=== PATIENT | male | born 1955 | race African-American/Black ===

== ENCOUNTER 2017-05-20 15:00 | Inpatient (IN) | payer OTHER ==
[2017-05-20 16:58] VITALS: BMI 28.3
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
[2017-05-20] MEDS ORDERED: MAGNESIUM CITRATE 300 ML BOTTLE PO PRN (18:21)
[2017-05-20] MEDS ORDERED: IBUPROFEN 400 MG TABLET (FP) PO PRN (18:21)
[2017-05-20] MEDS ORDERED: hydrOXYzine PAMOATE 50 MG CAPSULE (FP) PO PRN (18:21)
[2017-05-20] MEDS ORDERED: chlordiazePOXIDE HCL 25 MG CAPSULE PO PRN (18:21)
[2017-05-20] MEDS ORDERED: MENTHOL/PHENOL 1 EACH UD MM PRN (18:21)
[2017-05-20] MEDS ORDERED: MAGNESIUM HYDROX 2400MG/30ML ORAL SUSPENSION 30 ML CUP PO PRN (18:21)
[2017-05-20] MEDS ORDERED: ACETAMINOPHEN 325 MG TABLET (FP) PO PRN (18:21)
[2017-05-20] MEDS ORDERED: LOPERAMIDE HCL 2 MG CAPSULE PO PRN (18:21)
[2017-05-20] MEDS ORDERED: P-EPHED 60MG/TRIPROLIDI 2.5MG TABLET PO PRN (18:21)
[2017-05-20] MEDS ORDERED: guaiFENesin/D-METHORPHAN HB 10 ML UNIT-DOSE CUPS PO PRN (18:21)
[2017-05-20] MEDS ORDERED: MAG HYDROX/AL HYDROX/SIMETH 30 ML UNIT-DOSE CUP PO PRN (18:21)
[2017-05-20] MEDS ORDERED: chlordiazePOXIDE HCL 25 MG CAPSULE PO ONE (18:45)
[2017-05-20] MEDS: amLODIPine BESYLATE 5 MG TABLET (FP) PO SCH (19:45)
[2017-05-20] MEDS: NICOTINE 21 MG/24 HOURS TOPICAL PATCH TD SCH (19:48)
[2017-05-20] MEDS: chlordiazePOXIDE HCL 25 MG CAPSULE PO SCH (22:19)
[2017-05-20] MEDS: THIAMINE HCL 100 MG TABLET (FP) PO SCH (22:19)
[2017-05-20 23:24] LABS: URINE APPEARANCE CLEAR; URINE BILIRUBIN NEGATIVE (NEGATIVE); URINE BLOOD 1+ (NEGATIVE); URINE COLOR YELLOW; URINE GLUCOSE (UA) NEGATIVE (NEGATIVE); URINE KETONE NEGATIVE (NEGATIVE); URINE LEUK ESTERASE NEGATIVE (NEGATIVE); URINE NITRITE NEGATIVE (NEGATIVE); URINE PROTEIN NEGATIVE (NEGATIVE); URINE UROBILINOGEN NEGATIVE mg/dL (0.2-1.0)
[2017-05-21 01:05] LABS: URINE RBC 1 /hpf (0-3)
[2017-05-21 01:06] LABS: URINE BACTERIA RARE /hpf (NONE SEEN); URINE WBC 1 /hpf (3-5)
[2017-05-21] MEDS: chlordiazePOXIDE HCL 25 MG CAPSULE PO SCH ×4 (05:07→22:13)
[2017-05-21 10:13] LABS: MCH 25.6 pg (25.7-33.7); MCHC 33.6 g/dl (32.0-35.9); MEAN CELL VOLUME 76.3 fl (80-96); MEAN PLT VOLUME 7.6 fl (7.5-11.1); PLATELET COUNT 260 K/MM3 (134-434); RDW 17.2 % (11.9-15.9); WHITE BLOOD COUNT 11.3 K/mm3 (4.0-10.0)
[2017-05-21] MEDS: NICOTINE 21 MG/24 HOURS TOPICAL PATCH TD SCH (10:23)
[2017-05-21] MEDS: PRENATAL VITAMINS W/ FOLIC ACID TABLET (FP) PO SCH (10:23)
[2017-05-21] MEDS: amLODIPine BESYLATE 5 MG TABLET (FP) PO SCH (10:23)
[2017-05-21 10:53] LABS: ALBUMIN 3.1 g/dl (3.4-5.0); ALK PHOS 90 U/L (45-117); ANION GAP 8 (8-16); BILIRUBIN,TOTAL 0.4 mg/dL (0.2-1.0); CALCIUM 8.5 mg/dL (8.5-10.1); CO2 29 mmol/L (21-32); CREATININE 0.8 mg/dL (0.7-1.3); GLUCOSE,RANDOM 85 mg/dL (74-106); SGOT/AST 57 U/L (15-37); SGPT/ALT 52 U/L (12-78); TOT PROT 7.2 g/dl (6.4-8.2)
--- NOTE | 2017-05-21 12:23 | EKG ---
Test Reason : Blood Pressure : / mmHG Vent. Rate : 058 BPM Atrial Rate : 058 BPM P-R Int : 144 ms QRS Dur : 100 ms QT Int : 440 ms P-R-T Axes : 051 -65 068 degrees QTc Int : 431 ms SINUS BRADYCARDIA POSSIBLE LEFT ATRIAL ENLARGEMENT INCOMPLETE RIGHT BUNDLE BRANCH BLOCK LEFT ANTERIOR FASCICULAR BLOCK ABNORMAL ECG NO PREVIOUS ECGS AVAILABLE Confirmed by ALAN VERDUGO, MIKE ([id number]) on 05/21/2017 12:22:36 PM Referred By: Edward Flanagan Confirmed By:MIKE PHILLIPS MD
--- NOTE | 2017-05-21 12:43 | PN ---
[facility] CIWA - CIWA Score Nausea/Vomitin-No Nausea/No Vomiting Muscle Tremors: 4-Moderate,w/Arms Extend Anxiety: 4-Mod. Anxious/Guarded Agitation: 4-Moderately Restless Paroxysmal Sweats: 1-Minimal Palms Moist Orientation: 0-Oriented Tacttile Disturbances: 3-Moderate Itch/Numb/Burn Auditory Disturbances: 0-None Visual Disturbances: 0-None Headache: 0-None Present CIWA-Ar Total Score: 16 S Progress Note (SOAP) Subjective: ANXIETY,TREMORS,SWEATS,FATIGUE, [place]ARR[place]A. Objective: 05/21/17 12:42 Vital Signs Temperature 97.3 F L 05/21/17 09:27 Pulse Rate 64 05/21/17 09:27 Respiratory Rate 16 05/21/17 09:27 Blood Pressure 118/80 05/21/17 09:27 O2 Sat by Pulse Oximetry (%) Laboratory Last Values WBC 11.3 K/mm3 (4.0-10.0) H D 05/21/17 06:30 RBC 4.38 M/mm3 (4.00-5.60) 05/21/17 06:30 Hgb 11.2 GM/dL (11.7-16.9) L 05/21/17 06:30 Hct 33.4 % (35.4-49) L 05/21/17 06:30 MCV 76.3 fl (80-96) L 05/21/17 06:30 MCH 25.6 pg (25.7-33.7) L 05/21/17 06:30 MCHC 33.6 g/dl (32.0-35.9) 05/21/17 06:30 RDW 17.2 % (11.9-15.9) H 05/21/17 06:30 Plt Count 260 K/MM3 (134-434) 05/21/17 06:30 MPV 7.6 fl (7.5-11.1) 05/21/17 06:30 Sodium 141 mmol/L (136-145) 05/21/17 06:30 Potassium 4.0 mmol/L (3.5-5.1) 05/21/17 06:30 Chloride 104 mmol/L (98-107) 05/21/17 06:30 Carbon Dioxide 29 mmol/L (21-32) 05/21/17 06:30 Anion Gap 8 (8-16) 05/21/17 06:30 BUN 7 mg/dL (7-18) D 05/21/17 06:30 Creatinine 0.8 mg/dL (0.7-1.3) 05/21/17 06:30 Creat Clearance w eGFR > 60 (>60) 05/21/17 06:30 Random Glucose 85 mg/dL (74-106) 05/21/17 06:30 Calcium 8.5 mg/dL (8.5-10.1) 05/21/17 06:30 Total Bilirubin 0.4 mg/dL (0.2-1.0) D 05/21/17 06:30 AST 57 U/L (15-37) H D 05/21/17 06:30 ALT 52 U/L (12-78) 05/21/17 06:30 Alkaline Phosphatase 90 U/L (45-117) 05/21/17 06:30 Total Protein 7.2 g/dl (6.4-8.2) 05/21/17 06:30 Albumin 3.1 g/dl (3.4-5.0) L 05/21/17 06:30 Urine Color Yellow 05/20/17 20:00 Urine Appearance Clear 05/20/17 20:00 Urine pH 5.0 (5.0-8.0) 05/20/17 20:00 Ur Specific [place] 1.020 (1.005-1.025) 05/20/17 20:00 Urine Protein Negative (NEGATIVE) 05/20/17 20:00 Urine Glucose (UA) Negative (NEGATIVE) 05/20/17 20:00 Urine Ketones Negative (NEGATIVE) 05/20/17 20:00 Urine Blood 1+ (NEGATIVE) H 05/20/17 20:00 Urine Nitrite Negative (NEGATIVE) 05/20/17 20:00 Urine Bilirubin Negative (NEGATIVE) 05/20/17 20:00 Urine Urobilinogen Negative mg/dL (0.2-1.0) 05/20/17 20:00 Ur Leukocyte Esterase Negative (NEGATIVE) 05/20/17 20:00 Urine RBC 1 /hpf (0-3) 05/20/17 20:00 Urine WBC 1 /hpf (3-5) 05/20/17 20:00 Ur Epithelial Cells Rare /hpf (FEW) 05/20/17 20:00 Urine Bacteria Rare /hpf (NONE SEEN) 05/20/17 20:00 RPR Titer Nonreactive (NONREACTIVE) 05/21/17 06:30 Assessment: 05/21/17 12:43 WITHDRAWAL SX Plan: CONTINUE DETOX
[2017-05-21] MEDS: FERROUS SO4 325 MG TABLET (FP) PO SCH (13:47)
[2017-05-21] MEDS: THIAMINE HCL 100 MG TABLET (FP) PO SCH (22:13)
[2017-05-21] MEDS: diphenhydrAMINE HCL 50 MG CAPSULE PO PRN (22:13)
[2017-05-22] MEDS: chlordiazePOXIDE HCL 25 MG CAPSULE PO SCH ×3 (05:08→16:56)
[2017-05-22 10:14] LABS: BASOPHIL 0.9 % (0-2.0); EOSINOPHIL 3.1 % (0-4.5); MCH 25.8 pg (25.7-33.7); MCHC 33.5 g/dl (32.0-35.9); MEAN PLT VOLUME 7.9 fl (7.5-11.1); PLATELET COUNT 253 K/MM3 (134-434); RDW 17.8 % (11.9-15.9); WHITE BLOOD COUNT 9.1 K/mm3 (4.0-10.0)
[2017-05-22] MEDS: FERROUS SO4 325 MG TABLET (FP) PO SCH (10:15)
[2017-05-22] MEDS: PRENATAL VITAMINS W/ FOLIC ACID TABLET (FP) PO SCH (10:15)
[2017-05-22] MEDS: amLODIPine BESYLATE 5 MG TABLET (FP) PO SCH (10:15)
[2017-05-22] MEDS: NICOTINE 21 MG/24 HOURS TOPICAL PATCH TD SCH (10:16)
--- NOTE | 2017-05-22 10:55 | PN ---
[facility] CIWA - CIWA Score Nausea/Vomitin-No Nausea/No Vomiting Muscle Tremors: 4-Moderate,w/Arms Extend Anxiety: 4-Mod. Anxious/Guarded Agitation: 4-Moderately Restless Paroxysmal Sweats: 1-Minimal Palms Moist Orientation: 0-Oriented Tacttile Disturbances: 3-Moderate Itch/Numb/Burn Auditory Disturbances: 0-None Visual Disturbances: 0-None Headache: 0-None Present CIWA-Ar Total Score: 16 S Progress Note (SOAP) Subjective: SLIGHT ANXIETY,TREMORS,FATIGUE. LESS AGITATION THIS MORNING. Objective: 05/22/17 10:54 Vital Signs Temperature 98.7 F 05/22/17 09:49 Pulse Rate 60 05/22/17 09:49 Respiratory Rate 20 05/22/17 09:49 Blood Pressure 122/75 05/22/17 09:49 O2 Sat by Pulse Oximetry (%) Laboratory Last Values WBC 9.1 K/mm3 (4.0-10.0) 05/22/17 06:30 RBC 4.18 M/mm3 (4.00-5.60) 05/22/17 06:30 Hgb 10.8 GM/dL (11.7-16.9) L 05/22/17 06:30 Hct 32.2 % (35.4-49) L 05/22/17 06:30 MCV 77.0 fl (80-96) L 05/22/17 06:30 MCH 25.8 pg (25.7-33.7) 05/22/17 06:30 MCHC 33.5 g/dl (32.0-35.9) 05/22/17 06:30 RDW 17.8 % (11.9-15.9) H 05/22/17 06:30 Plt Count 253 K/MM3 (134-434) 05/22/17 06:30 MPV 7.9 fl (7.5-11.1) 05/22/17 06:30 Neutrophils % 51.0 % (42.8-82.8) 05/22/17 06:30 Lymphocytes % 26.8 % (8-40) 05/22/17 06:30 Monocytes % 18.2 % (3.8-10.2) H 05/22/17 06:30 Eosinophils % 3.1 % (0-4.5) 05/22/17 06:30 Basophils % 0.9 % (0-2.0) 05/22/17 06:30 Sodium 141 mmol/L (136-145) 05/21/17 06:30 Potassium 4.0 mmol/L (3.5-5.1) 05/21/17 06:30 Chloride 104 mmol/L (98-107) 05/21/17 06:30 Carbon Dioxide 29 mmol/L (21-32) 05/21/17 06:30 Anion Gap 8 (8-16) 05/21/17 06:30 BUN 7 mg/dL (7-18) D 05/21/17 06:30 Creatinine 0.8 mg/dL (0.7-1.3) 05/21/17 06:30 Creat Clearance w eGFR > 60 (>60) 05/21/17 06:30 Random Glucose 85 mg/dL (74-106) 05/21/17 06:30 Calcium 8.5 mg/dL (8.5-10.1) 05/21/17 06:30 Total Bilirubin 0.4 mg/dL (0.2-1.0) D 05/21/17 06:30 AST 57 U/L (15-37) H D 05/21/17 06:30 ALT 52 U/L (12-78) 05/21/17 06:30 Alkaline Phosphatase 90 U/L (45-117) 05/21/17 06:30 Total Protein 7.2 g/dl (6.4-8.2) 05/21/17 06:30 Albumin 3.1 g/dl (3.4-5.0) L 05/21/17 06:30 Urine Color Yellow 05/20/17 20:00 Urine Appearance Clear 05/20/17 20:00 Urine pH 5.0 (5.0-8.0) 05/20/17 20:00 Ur Specific [place] 1.020 (1.005-1.025) 05/20/17 20:00 Urine Protein Negative (NEGATIVE) 05/20/17 20:00 Urine Glucose (UA) Negative (NEGATIVE) 05/20/17 20:00 Urine Ketones Negative (NEGATIVE) 05/20/17 20:00 Urine Blood 1+ (NEGATIVE) H 05/20/17 20:00 Urine Nitrite Negative (NEGATIVE) 05/20/17 20:00 Urine Bilirubin Negative (NEGATIVE) 05/20/17 20:00 Urine Urobilinogen Negative mg/dL (0.2-1.0) 05/20/17 20:00 Ur Leukocyte Esterase Negative (NEGATIVE) 05/20/17 20:00 Urine RBC 1 /hpf (0-3) 05/20/17 20:00 Urine WBC 1 /hpf (3-5) 05/20/17 20:00 Ur Epithelial Cells Rare /hpf (FEW) 05/20/17 20:00 Urine Bacteria Rare /hpf (NONE SEEN) 05/20/17 20:00 RPR Titer Nonreactive (NONREACTIVE) 05/21/17 06:30 Assessment: 05/22/17 10:55 WITHDRAWAL SX Plan: CONTINUE DETOX
[2017-05-22] MEDS: NICOTINE POLACRILEX 2 MG GUM BUC PRN (20:49)
[2017-05-22] MEDS: chlordiazePOXIDE 5 MG CAPSULE PO SCH (22:12)
[2017-05-22] MEDS: THIAMINE HCL 100 MG TABLET (FP) PO SCH (22:12)
[2017-05-22] MEDS: diphenhydrAMINE HCL 50 MG CAPSULE PO PRN (22:12)
[2017-05-23] MEDS: chlordiazePOXIDE 5 MG CAPSULE PO SCH ×3 (05:31→17:21)
[2017-05-23] MEDS: NICOTINE 21 MG/24 HOURS TOPICAL PATCH TD SCH (10:05)
[2017-05-23] MEDS: PRENATAL VITAMINS W/ FOLIC ACID TABLET (FP) PO SCH (10:05)
[2017-05-23] MEDS: FERROUS SO4 325 MG TABLET (FP) PO SCH (10:05)
[2017-05-23] MEDS: amLODIPine BESYLATE 5 MG TABLET (FP) PO SCH (10:05)
--- NOTE | 2017-05-23 10:54 | PN ---
BHS Progress Note (SOAP) Subjective: ALERT O X 3. NAD. ANXIETY SWEATS. Objective: 05/23/17 10:53 Vital Signs Temperature 96.9 F L 05/23/17 09:13 Pulse Rate 69 05/23/17 09:13 Respiratory Rate 18 05/23/17 09:13 Blood Pressure 112/82 05/23/17 09:13 O2 Sat by Pulse Oximetry (%) Laboratory Last Values WBC 9.1 K/mm3 (4.0-10.0) 05/22/17 06:30 RBC 4.18 M/mm3 (4.00-5.60) 05/22/17 06:30 Hgb 10.8 GM/dL (11.7-16.9) L 05/22/17 06:30 Hct 32.2 % (35.4-49) L 05/22/17 06:30 MCV 77.0 fl (80-96) L 05/22/17 06:30 MCH 25.8 pg (25.7-33.7) 05/22/17 06:30 MCHC 33.5 g/dl (32.0-35.9) 05/22/17 06:30 RDW 17.8 % (11.9-15.9) H 05/22/17 06:30 Plt Count 253 K/MM3 (134-434) 05/22/17 06:30 MPV 7.9 fl (7.5-11.1) 05/22/17 06:30 Neutrophils % 51.0 % (42.8-82.8) 05/22/17 06:30 Lymphocytes % 26.8 % (8-40) 05/22/17 06:30 Monocytes % 18.2 % (3.8-10.2) H 05/22/17 06:30 Eosinophils % 3.1 % (0-4.5) 05/22/17 06:30 Basophils % 0.9 % (0-2.0) 05/22/17 06:30 Sodium 141 mmol/L (136-145) 05/21/17 06:30 Potassium 4.0 mmol/L (3.5-5.1) 05/21/17 06:30 Chloride 104 mmol/L (98-107) 05/21/17 06:30 Carbon Dioxide 29 mmol/L (21-32) 05/21/17 06:30 Anion Gap 8 (8-16) 05/21/17 06:30 BUN 7 mg/dL (7-18) D 05/21/17 06:30 Creatinine 0.8 mg/dL (0.7-1.3) 05/21/17 06:30 Creat Clearance w eGFR > 60 (>60) 05/21/17 06:30 Random Glucose 85 mg/dL (74-106) 05/21/17 06:30 Calcium 8.5 mg/dL (8.5-10.1) 05/21/17 06:30 Total Bilirubin 0.4 mg/dL (0.2-1.0) D 05/21/17 06:30 AST 57 U/L (15-37) H D 05/21/17 06:30 ALT 52 U/L (12-78) 05/21/17 06:30 Alkaline Phosphatase 90 U/L (45-117) 05/21/17 06:30 Total Protein 7.2 g/dl (6.4-8.2) 05/21/17 06:30 Albumin 3.1 g/dl (3.4-5.0) L 05/21/17 06:30 Urine Color Yellow 05/20/17 20:00 Urine Appearance Clear 05/20/17 20:00 Urine pH 5.0 (5.0-8.0) 05/20/17 20:00 Ur Specific [place] 1.020 (1.005-1.025) 05/20/17 20:00 Urine Protein Negative (NEGATIVE) 05/20/17 20:00 Urine Glucose (UA) Negative (NEGATIVE) 05/20/17 20:00 Urine Ketones Negative (NEGATIVE) 05/20/17 20:00 Urine Blood 1+ (NEGATIVE) H 05/20/17 20:00 Urine Nitrite Negative (NEGATIVE) 05/20/17 20:00 Urine Bilirubin Negative (NEGATIVE) 05/20/17 20:00 Urine Urobilinogen Negative mg/dL (0.2-1.0) 05/20/17 20:00 Ur Leukocyte Esterase Negative (NEGATIVE) 05/20/17 20:00 Urine RBC 1 /hpf (0-3) 05/20/17 20:00 Urine WBC 1 /hpf (3-5) 05/20/17 20:00 Ur Epithelial Cells Rare /hpf (FEW) 05/20/17 20:00 Urine Bacteria Rare /hpf (NONE SEEN) 05/20/17 20:00 RPR Titer Nonreactive (NONREACTIVE) 05/21/17 06:30 Assessment: 05/23/17 10:53 WITHDRAWAL SX Plan: CONTINUE DETOX
[2017-05-23] MEDS: NICOTINE POLACRILEX 2 MG GUM BUC PRN (19:50)
[2017-05-23] MEDS: diphenhydrAMINE HCL 50 MG CAPSULE PO PRN (22:07)
[2017-05-23] MEDS: chlordiazePOXIDE HCL 10 MG CAPSULE PO SCH (22:07)
[2017-05-23] MEDS: THIAMINE HCL 100 MG TABLET (FP) PO SCH (22:07)
[2017-05-24] MEDS: chlordiazePOXIDE HCL 10 MG CAPSULE PO SCH (06:20)
[2017-05-24] MEDS: PRENATAL VITAMINS W/ FOLIC ACID TABLET (FP) PO SCH (09:06)
[2017-05-24] MEDS: FERROUS SO4 325 MG TABLET (FP) PO SCH (09:06)
[2017-05-24] MEDS: amLODIPine BESYLATE 5 MG TABLET (FP) PO SCH (09:06)
[2017-05-24] MEDS: NICOTINE 21 MG/24 HOURS TOPICAL PATCH TD SCH (09:08)
[2017-05-24 09:56] VITALS: BP 139/91; PULSE 82; TEMP 96.4
--- NOTE | 2017-05-24 13:28 | DS ---
[facility] Detox Discharge Summary Admission Date: 05/20/17 Discharge Date: 05/24/17 - History Present History: Alcohol Dependence, Cocaine Dependence Additional Comments: PATIENT TO GO TO [facility] SUBSTANCE USE TREATMENT PROGRAM. PATIENT ADVISED TO FOLLOW-UP THERE FOR AFTERCARE PER DISCHARGE ARRANGEMENT. PATIENT NOTES THAT HE DOES CURRENTLY HAVE A PRIMARY CARE MEDICAL PROVIDER; PATIENT ADVISED TO FOLLOW-UP WITH THAT PROVIDER AFTER DISCHARGE FROM DETOX FOR ABNORMAL ADMISSION CBC VALUES. Pertinent Past History: HTN, Alopecia Areata Universalis, History of [place] to Back. - Physical Exam Results Vital Signs: Vital Signs Temperature 96.4 F L 05/24/17 09:56 Pulse Rate 82 05/24/17 09:56 Respiratory Rate 18 05/24/17 09:56 Blood Pressure 139/91 05/24/17 09:56 O2 Sat by Pulse Oximetry (%) Pertinent Admission Physical Exam Findings: WITHDRAWAL SYMPTOMS. Laboratory Tests 05/20/17 05/21/17 05/21/17 20:00 06:30 06:30 WBC 11.3 H D RBC 4.38 Hgb 11.2 L Hct 33.4 L MCV 76.3 L MCH 25.6 L MCHC 33.6 RDW 17.2 H Plt Count 260 MPV 7.6 Neutrophils % Lymphocytes % Monocytes % Eosinophils % Basophils % Sodium 141 Potassium 4.0 Chloride 104 Carbon Dioxide 29 Anion Gap 8 BUN 7 D Creatinine 0.8 Creat Clearance w eGFR > 60 Random Glucose 85 Calcium 8.5 Total Bilirubin 0.4 D AST 57 H D ALT 52 Alkaline Phosphatase 90 Total Protein 7.2 Albumin 3.1 L Urine Color Yellow Urine Appearance Clear Urine pH 5.0 Ur Specific [place] 1.020 Urine Protein Negative Urine Glucose (UA) Negative Urine Ketones Negative Urine Blood 1+ H Urine Nitrite Negative Urine Bilirubin Negative Urine Urobilinogen Negative Ur Leukocyte Esterase Negative Urine RBC 1 Urine WBC 1 Ur Epithelial Cells Rare Urine Bacteria Rare RPR Titer 05/21/17 05/22/17 06:30 06:30 WBC 9.1 RBC 4.18 Hgb 10.8 L Hct 32.2 L MCV 77.0 L MCH 25.8 MCHC 33.5 RDW 17.8 H Plt Count 253 MPV 7.9 Neutrophils % 51.0 Lymphocytes % 26.8 Monocytes % 18.2 H Eosinophils % 3.1 Basophils % 0.9 Sodium Potassium Chloride Carbon Dioxide Anion Gap BUN Creatinine Creat Clearance w eGFR Random Glucose Calcium Total Bilirubin AST ALT Alkaline Phosphatase Total Protein Albumin Urine Color Urine Appearance Urine pH Ur Specific [place] Urine Protein Urine Glucose (UA) Urine Ketones Urine Blood Urine Nitrite Urine Bilirubin Urine Urobilinogen Ur Leukocyte Esterase Urine RBC Urine WBC Ur Epithelial Cells Urine Bacteria RPR Titer Nonreactive LABS NOTED. - Treatment Hospital Course: Detox Protocol Followed, Detoxed Safely, Responded well, Discharged Condition Good - Medication Discharge Medications: Ambulatory Orders Ferrous Sulfate [Feosol] 325 mg PO DAILY #30 tablet 05/24/17 - Diagnosis (1) Alcohol dependence with uncomplicated withdrawal Status: Acute (2) Cocaine dependence Status: Acute Qualifiers: Substance use status: uncomplicated Qualified Code(s): F14.20 - Cocaine dependence, uncomplicated (3) Nicotine dependence Status: Chronic Qualifiers: Nicotine product type: cigarettes Substance use status: in withdrawal Qualified Code(s): F17.213 - Nicotine dependence, cigarettes, with withdrawal (4) Alopecia areata universalis Status: Chronic (5) Essential (primary) hypertension Status: Chronic - AMA Did Patient Leave Against Medical Advice: No
== END 2017-05-24 09:05 | disposition home or self-care (01) | DRG 774 ==
LOC: YASAS 15:00 → Y3N 18:36
PROVIDERS: ADMIT Internal Medicine; ATTEND Internal Medicine
PROC: HZ2ZZZZ Detoxification Services for Substance Abuse Treatment (ICD-10-PCS; principal; 2017-05-24)
DX: F10.230 Alcohol dependence with withdrawal, uncomplicated (principal); F14.20 Cocaine dependence, uncomplicated; F12.20 Cannabis dependence, uncomplicated; F17.210 Nicotine dependence, cigarettes, uncomplicated; I10 Essential (primary) hypertension; L63.1 Alopecia universalis; T21.3 Burn of third degree of trunk; Z87.438 Personal history of other diseases of male genital organs
CPT/HCPCS: 36415; 80053; 81003; 81015; 85025; 85027; 86593; 93005; 93010

== ENCOUNTER 2019-01-01 14:00 | Inpatient (IN) | payer OTHER ==
[2019-01-01 22:46] VITALS: BMI 29.1
--- NOTE | 2019-01-02 03:24 | HP ---
CIWA Score Nausea/Vomitin-Mild Nausea/No Vomiting (hx/o htn with worsening elevated b/ p when withdrawing.presentss with josé of .076. client unable to stop drinking due to withdrawal sx's. cont to drink not to withdraw) Muscle Tremors: None Anxiety: 4-Mod. Anxious/Guarded Agitation: 4-Moderately Restless Paroxysmal Sweats: No Perspiration Orientation: 0-Oriented Tacttile Disturbances: 0-None Auditory Disturbances: 0-None Visual Disturbances: 0-None Headache: 0-None Present CIWA-Ar Total Score: 9 - Admission Criteria OASAS Guidelines: Admission for Medically Managed Detox: Requires at least one of the followin. CIWA greater than 12 2. Seizures within the past 24 hours 3. Delirium tremens within the past 24 hours 4. Hallucinations within the past 24 hours 5. Acute intervention needed for co occurring medical disorder 6. Acute intervention needed for co occurring psychiatric disorder 7. Severe withdrawal that cannot be handled at a lower level of care (continued vomiting, continued diarrhea, abnormal vital signs) requiring intravenous medication and/or fluids 8. Patient presents the following: Acute intervention needed for co-occurring med or psych disorder (josé .076 client continues to drink due to withdrawal sx's.) Admission Criteria Met: Admission criteria met Admission ROS [facility] Chief Complaint: c/o worsening withdrawal sx's. seeking detox txment. Allergies/Adverse Reactions: Allergies Allergy/AdvReac Type Severity Reaction Status Date / Time No Known Allergies Allergy Verified 01/01/19 23:37 History of Present Illness: 63 y.o. male with hx/o alcoholism here seeking admission to detox. client is self referred as he is known to this program. He reports a recent detox at [facility] 10 days ago. he states he immediately relapsed after ks. drinking 6 pack of beer, 20 oz bottles daily. reports last drink earlier today due to worsening withdrawal sx's. He also states he experience very high blood pressure when withdrawing. ciwa 09. utox + bzo and hx/o htn. Denies any given period of sobriety denies hx/o seizures, si/hi, avh. lives with sibling, ssi- denies legals pmhx= htn psych- denies Exam Limitations: No Limitations - Ebola screening Have you traveled outside of the country in the last 21 days: No Have you had contact with anyone from an Ebola affected area: No Have you been sick,other than usual withdrawal symptoms: No Do you have a fever: No - Review of Systems Constitutional: Loss of Appetite EENT: reports: No Symptoms Reported Respiratory: reports: No Symptoms reported Cardiac: reports: No Symptoms Reported GI: reports: Nausea, Poor Fluid Intake : reports: No Symptoms Reported Musculoskeletal: reports: No Symptoms Reported Integumentary: reports: No Symptoms Reported Neuro: reports: No Symptoms reported Endocrine: reports: No Symptoms Reported Hematology: reports: No Symptoms Reported Psychiatric: reports: No Sypmtoms Reported Other Systems: Reviewed and Negative Patient History - Patient Medical History Hx Anemia: No Hx Asthma: No Hx Chronic Obstructive Pulmonary Disease (COPD): No Hx Cancer: No Hx Cardiac Disorders: No Hx Congestive Heart Failure: No Hx Hypertension: Yes (norvasc 5 mg) Hx Hypercholesterolemia: No Hx Pacemaker: No HX Cerebrovascular Accident: No Hx Seizures: No Hx Dementia: No Hx Diabetes: No Hx Gastrointestinal Disorders: No Hx Liver Disease: No Hx Genitourinary Disorders: No Hx Sexually Transmitted Disorders: Yes (GC in 1999) Hx Renal Disease (ESRD): No Hx Thyroid Disease: No Hx Human Immunodeficiency Virus (HIV): No Hx Hepatitis C: No Hx Depression: No Hx Suicide Attempt: No Hx Bipolar Disorder: No Hx Schizophrenia: No - Patient Surgical History Past Surgical History: No Hx Neurologic Surgery: No Hx Cataract Extraction: No Hx Cardiac Surgery: No Hx Lung Surgery: No Hx Breast Surgery: No Hx Breast Biopsy: No Hx Abdominal Surgery: No Hx Appendectomy: No Hx Cholecystectomy: No Hx Genitourinary Surgery: No Hx Section: No Hx Orthopedic Surgery: No Anesthesia Reaction: No - PPD History Previous Implant?: Yes Documented Results: Negative w/proof Implanted On Prior R Admission?: Yes Date: 05/22/17 Results: 0 mm PPD to be Administered?: Yes - Smoking Cessation Smoking history: Current every day smoker Have you smoked in the past 12 months: Yes Aproximately how many cigarettes per day: 20 Cigars Per Day: 0 Hx Chewing Tobacco Use: No Initiated information on smoking cessation: Yes 'Breaking Loose' booklet given: 01/02/19 - Substance & Tx. History Hx Alcohol Use: Yes Hx Substance Use: Yes Substance Use Type: Alcohol Hx Substance Use Treatment: Yes ([facility]) - Substances Abused Alcohol Route: Oral Frequency: Daily Amount used: beer- 2 six pack-20 oz Age of first use: 18 Date of Last Use: 01/01/19 Family Disease History - Family Disease History Family Disease History: Diabetes: Brother (drug issues ), Heart Disease: Mother (aneurysm,HTN ), Respiratory: Father (emphysema/ALCOHOLIC ), Other: Mother, Brother Admission Physical Exam [facility] - Vital Signs Vital Signs: Vital Signs - 24 hr 01/01/19 22:45 Temperature 96.8 F L Pulse Rate 62 Respiratory 18 Rate Blood Pressure 130/83 - Physical General Appearance: Yes: Appropriately Dressed, Mild Distress, Tremorous (felt) , Irritable, Anxious HEENTM: Yes: EOMI, Normocephalic, Normal Voice, JULIO, Pharynx Normal Respiratory: Yes: Chest Non-Tender, Lungs Clear, Normal Breath Sounds, No Respiratory Distress, No Accessory Muscle Use Neck: Yes: No masses,lesions,Nodules, Supple, Trachea in good position Breast: Yes: Breast Exam Deferred Cardiology: Yes: Regular Rhythm, Regular Rate, S1, S2 Abdominal: Yes: Normal Bowel Sounds, Non Tender, Soft, Protuberent Genitourinary: Yes: Other (no c/o offered) Back: Yes: Normal Inspection Musculoskeletal: Yes: full range of Motion, Gait Steady Extremities: Yes: Normal Capillary Refill, Normal Range of Motion, Non-Tender, Tremors (felt) Neurological: Yes: Fully Oriented, Alert, Motor Strength 5/5 Integumentary: Yes: Dry, Warm Lymphatic: Yes: Within Normal Limits - Diagnostic (1) Alcohol dependence with uncomplicated withdrawal Current Visit: Yes Status: Acute (2) Essential (primary) hypertension Current Visit: Yes Status: Chronic (3) Nicotine dependence Current Visit: Yes Status: Chronic Qualifiers: Nicotine product type: cigarettes Substance use status: in withdrawal Qualified Code(s): F17.213 - Nicotine dependence, cigarettes, with withdrawal Cleared for Admission [facility] - Detox or Rehab [facility] Level of Care: Medically Managed Detox Regimen/Protocol: Librium Claeared for Rehab Admission: No S Breath Alcohol Content Breath Alcohol Content: 0.076 Urine Drug Screen - Results Drug Screen Negative: No Urine Drug Screen Results: BZO-Benzodiazepines Inpatient Rehab Admission - Rehab Decision to Admit Inpatient rehab admission?: No
[2019-01-02] MEDS ORDERED: METHOCARBAMOL 500 MG TABLET PO PRN (03:27)
[2019-01-02] MEDS ORDERED: ACETAMINOPHEN 325 MG TABLET (FP) PO PRN (03:27)
[2019-01-02] MEDS ORDERED: chlordiazePOXIDE HCL 10 MG CAPSULE PO PRN (03:27)
[2019-01-02] MEDS ORDERED: hydrOXYzine PAMOATE 25 MG CAPSULE (FP) PO PRN (03:27)
[2019-01-02] MEDS ORDERED: NICOTINE POLACRILEX 2 MG GUM BUC PRN (03:27)
[2019-01-02] MEDS ORDERED: MAG HYDROX/AL HYDROX/SIMETH 30 ML UNIT-DOSE CUP PO PRN (03:27)
[2019-01-02] MEDS ORDERED: MELATONIN 5 MG TABLETS PO PRN (03:27)
[2019-01-02] MEDS ORDERED: MAGNESIUM CITRATE 300 ML BOTTLE PO PRN (03:27)
[2019-01-02] MEDS ORDERED: BISMUTH SUBSALICYLATE 524 MG/30 ML UD PO PRN (03:27)
[2019-01-02] MEDS ORDERED: MAGNESIUM HYDROX 2400MG/30ML ORAL SUSPENSION 30 ML CUP PO PRN (03:27)
[2019-01-02] MEDS: chlordiazePOXIDE HCL 25 MG CAPSULE PO SCH ×3 (04:06→23:06)
[2019-01-02 10:20] LABS: HEMATOCRIT 36.3 % (35.4-49); HEMOGLOBIN 12.5 GM/dL (11.7-16.9); MCH 24.7 pg (25.7-33.7); MCHC 34.4 g/dl (32.0-35.9); MEAN CELL VOLUME 71.8 fl (80-96); PLATELET COUNT 353 K/MM3 (134-434); RBC 5.06 M/mm3 (4.00-5.60); RDW 18.3 % (11.9-15.9); WHITE BLOOD COUNT 11.7 K/mm3 (4.0-10.0)
[2019-01-02 10:29] LABS: ALBUMIN 3.4 g/dl (3.4-5.0); ALK PHOS 72 U/L (45-117); ANION GAP 7 MMOL/L (8-16); BILIRUBIN,TOTAL 0.3 mg/dL (0.2-1); BLOOD UREA NITROGEN 24 mg/dL (7-18); CALCIUM 8.9 mg/dL (8.5-10.1); CHLORIDE 103 mmol/L (98-107); CO2 27 mmol/L (21-32); CREATININE 1.1 mg/dL (0.55-1.3); GLUCOSE,RANDOM 64 mg/dL (74-106); POTASSIUM 5.5 mmol/L (3.5-5.1); SGOT/AST 17 U/L (15-37); SGPT/ALT 20 U/L (13-61); SODIUM 137 mmol/L (136-145); TOT PROT 8.2 g/dl (6.4-8.2)
[2019-01-02] MEDS: PRENATAL VITAMINS W/ FOLIC ACID TABLET (FP) PO SCH (10:47)
[2019-01-02] MEDS: NICOTINE 14 MG/24 HOURS TOPICAL PATCH TD SCH (10:48)
[2019-01-02] MEDS: MENTHOL/PHENOL 1 EACH UD MM PRN (13:41)
[2019-01-02] MEDS: IBUPROFEN 400 MG TABLET (FP) PO PRN (13:41)
--- NOTE | 2019-01-02 14:42 | PN ---
S CIWA - CIWA Score Nausea/Vomitin Muscle Tremors: None Anxiety: 2 Agitation: 0-Normal Activity Paroxysmal Sweats: 3 Orientation: 0-Oriented Tacttile Disturbances: 3-Moderate Itch/Numb/Burn Auditory Disturbances: 0-None Visual Disturbances: 2-Mild Sensitivity Headache: 0-None Present CIWA-Ar Total Score: 12 S Progress Note (SOAP) Subjective: Anxious, Sweating, Nausea, Fatigue. Objective: PATIENT A & O X 3. IN NO ACUTE DISTRESS. PATIENT AFEBRILE. 01/02/19 14:42 Vital Signs Temperature 97.8 F 01/02/19 13:45 Pulse Rate 56 L 01/02/19 13:45 Respiratory Rate 18 01/02/19 13:45 Blood Pressure 98/61 01/02/19 13:45 O2 Sat by Pulse Oximetry (%) Laboratory Tests 01/02/19 01/02/19 07:40 07:40 WBC 11.7 H RBC 5.06 Hgb 12.5 Hct 36.3 MCV 71.8 L MCH 24.7 L MCHC 34.4 RDW 18.3 H Plt Count 353 D MPV 8.0 Sodium 137 Potassium 5.5 H Chloride 103 Carbon Dioxide 27 Anion Gap 7 L BUN 24 H Creatinine 1.1 Creat Clearance w eGFR > 60 Random Glucose 64 L Calcium 8.9 Total Bilirubin 0.3 AST 17 ALT 20 Alkaline Phosphatase 72 Total Protein 8.2 Albumin 3.4 LABS NOTED. RPR RESULT PENDING. 01/02/19 14:47 Assessment: 01/02/19 14:47 WITHDRAWAL SYMPTOMS. HYPERKALEMIA. LEUKOPCYTOSIS. Plan: CONTINUE DETOX. INCREASE DAILY PO FLUID INTAKE. REPEAT CBC LEVEL TOMORROW AM FOR ELEVATED ADMISSION WBC LEVEL. REPEAT K LEVEL TOMORROW AM FOR ELEVATED ADMISSION LEVEL.
[2019-01-02] MEDS: THIAMINE HCL 100 MG TABLET (FP) PO SCH (23:06)
[2019-01-03] MEDS: chlordiazePOXIDE 5 MG CAPSULE PO SCH ×3 (05:42→22:30)
[2019-01-03] MEDS: MENTHOL/PHENOL 1 EACH UD MM PRN (05:43)
[2019-01-03] MEDS: PRENATAL VITAMINS W/ FOLIC ACID TABLET (FP) PO SCH (10:22)
[2019-01-03] MEDS: NICOTINE 14 MG/24 HOURS TOPICAL PATCH TD SCH (10:22)
[2019-01-03] MEDS: ACETAMINOPHEN 325 MG TABLET (FP) PO PRN ×2 (10:23→17:28)
[2019-01-03 11:30] LABS: URINE APPEARANCE CLEAR; URINE BILIRUBIN NEGATIVE (<2.0 mg/dL); URINE COLOR LTYELLOW; URINE GLUCOSE (UA) NEGATIVE (NEGATIVE); URINE KETONE NEGATIVE (NEGATIVE); URINE LEUK ESTERASE 2+ (NEGATIVE); URINE NITRITE NEGATIVE (NEGATIVE); URINE PROTEIN NEGATIVE (NEGATIVE); URINE UROBILINOGEN NEGATIVE mg/dL (0.2-1.0)
[2019-01-03 11:43] LABS: URINE BACTERIA FEW /hpf (NONE SEEN)
--- NOTE | 2019-01-03 12:03 | PN ---
S CIWA - CIWA Score Nausea/Vomitin-No Nausea/No Vomiting Muscle Tremors: 2 Anxiety: 1-Mildly Anxious Agitation: 2 Paroxysmal Sweats: 1-Minimal Palms Moist Orientation: 1-Uncertain about Date Tacttile Disturbances: 0-None Auditory Disturbances: 0-None Visual Disturbances: 0-None Headache: 1-Very Mild CIWA-Ar Total Score: 8 S Progress Note (SOAP) Subjective: tremor sweating anxiousness trouble concentration Objective: 01/03/19 12:03 Vital Signs Temperature 97.8 F 01/03/19 09:26 Pulse Rate 70 01/03/19 09:26 Respiratory Rate 18 01/03/19 09:26 Blood Pressure 103/61 01/03/19 09:26 O2 Sat by Pulse Oximetry (%) Laboratory Last Values WBC 11.7 K/mm3 (4.0-10.0) H 01/02/19 07:40 RBC 5.06 M/mm3 (4.00-5.60) 01/02/19 07:40 Hgb 12.5 GM/dL (11.7-16.9) 01/02/19 07:40 Hct 36.3 % (35.4-49) 01/02/19 07:40 MCV 71.8 fl (80-96) L 01/02/19 07:40 MCH 24.7 pg (25.7-33.7) L 01/02/19 07:40 MCHC 34.4 g/dl (32.0-35.9) 01/02/19 07:40 RDW 18.3 % (11.9-15.9) H 01/02/19 07:40 Plt Count 353 K/MM3 (134-434) D 01/02/19 07:40 MPV 8.0 fl (7.5-11.1) 01/02/19 07:40 Sodium 137 mmol/L (136-145) 01/02/19 07:40 Potassium 5.5 mmol/L (3.5-5.1) H 01/02/19 07:40 Chloride 103 mmol/L (98-107) 01/02/19 07:40 Carbon Dioxide 27 mmol/L (21-32) 01/02/19 07:40 Anion Gap 7 MMOL/L (8-16) L 01/02/19 07:40 BUN 24 mg/dL (7-18) H 01/02/19 07:40 Creatinine 1.1 mg/dL (0.55-1.3) 01/02/19 07:40 Creat Clearance w eGFR > 60 (>60) 01/02/19 07:40 Random Glucose 64 mg/dL (74-106) L 01/02/19 07:40 Calcium 8.9 mg/dL (8.5-10.1) 01/02/19 07:40 Total Bilirubin 0.3 mg/dL (0.2-1) 01/02/19 07:40 AST 17 U/L (15-37) 01/02/19 07:40 ALT 20 U/L (13-61) 01/02/19 07:40 Alkaline Phosphatase 72 U/L (45-117) 01/02/19 07:40 Total Protein 8.2 g/dl (6.4-8.2) 01/02/19 07:40 Albumin 3.4 g/dl (3.4-5.0) 01/02/19 07:40 Urine Color Ltyellow 01/03/19 08:00 Urine Appearance Clear 01/03/19 08:00 Urine pH 6.0 (5.0-8.0) 01/03/19 08:00 Ur Specific [place] 1.016 (1.010-1.035) 01/03/19 08:00 Urine Protein Negative (NEGATIVE) 01/03/19 08:00 Urine Glucose (UA) Negative (NEGATIVE) 01/03/19 08:00 Urine Ketones Negative (NEGATIVE) 01/03/19 08:00 Urine Blood Negative (NEGATIVE) 01/03/19 08:00 Urine Nitrite Negative (NEGATIVE) 01/03/19 08:00 Urine Bilirubin Negative (<2.0 mg/dL) 01/03/19 08:00 Urine Urobilinogen Negative mg/dL (0.2-1.0) 01/03/19 08:00 Ur Leukocyte Esterase 2+ (NEGATIVE) H 01/03/19 08:00 Urine WBC (Auto) 26 /hpf (3-5) 01/03/19 08:00 Urine RBC (Auto) 2 /hpf (0-3) 01/03/19 08:00 Urine Bacteria Few /hpf (NONE SEEN) 01/03/19 08:00 RPR Titer Nonreactive (NONREACTIVE) 01/02/19 07:40 lab noted repeat K+ 01/03/19 12:05 Assessment: 01/03/19 12:06 withdrawal sx 01/03/19 12:06 K+ elevation Plan: continue detox repeat K+
[2019-01-03] MEDS: IBUPROFEN 400 MG TABLET (FP) PO PRN (20:15)
[2019-01-03] MEDS: THIAMINE HCL 100 MG TABLET (FP) PO SCH (22:30)
[2019-01-04] MEDS ORDERED: chlordiazePOXIDE HCL 10 MG CAPSULE PO PRN (05:00)
[2019-01-04] MEDS: chlordiazePOXIDE HCL 10 MG CAPSULE PO SCH ×3 (05:10→22:24)
[2019-01-04] MEDS: IBUPROFEN 400 MG TABLET (FP) PO PRN (08:37)
[2019-01-04] MEDS: NICOTINE 14 MG/24 HOURS TOPICAL PATCH TD SCH (10:18)
[2019-01-04] MEDS: PRENATAL VITAMINS W/ FOLIC ACID TABLET (FP) PO SCH (10:20)
--- NOTE | 2019-01-04 15:08 | PN ---
S CIWA - CIWA Score Nausea/Vomitin-No Nausea/No Vomiting Muscle Tremors: 1-None Visible, but [place] Anxiety: 1-Mildly Anxious Agitation: 1-Slight > Activity Paroxysmal Sweats: No Perspiration Orientation: 0-Oriented Tacttile Disturbances: 0-None Auditory Disturbances: 0-None Visual Disturbances: 0-None Headache: 1-Very Mild CIWA-Ar Total Score: 4 BHS Progress Note (SOAP) Subjective: feeling better less tremor sleep better at night less sweating Objective: 01/04/19 15:07 Vital Signs Temperature 98.0 F 01/04/19 13:34 Pulse Rate 57 L 01/04/19 13:34 Respiratory Rate 18 01/04/19 13:34 Blood Pressure 113/74 01/04/19 13:34 O2 Sat by Pulse Oximetry (%) Laboratory Last Values WBC 11.7 K/mm3 (4.0-10.0) H 01/02/19 07:40 RBC 5.06 M/mm3 (4.00-5.60) 01/02/19 07:40 Hgb 12.5 GM/dL (11.7-16.9) 01/02/19 07:40 Hct 36.3 % (35.4-49) 01/02/19 07:40 MCV 71.8 fl (80-96) L 01/02/19 07:40 MCH 24.7 pg (25.7-33.7) L 01/02/19 07:40 MCHC 34.4 g/dl (32.0-35.9) 01/02/19 07:40 RDW 18.3 % (11.9-15.9) H 01/02/19 07:40 Plt Count 353 K/MM3 (134-434) D 01/02/19 07:40 MPV 8.0 fl (7.5-11.1) 01/02/19 07:40 Sodium 137 mmol/L (136-145) 01/02/19 07:40 Potassium 5.5 mmol/L (3.5-5.1) H 01/02/19 07:40 Chloride 103 mmol/L (98-107) 01/02/19 07:40 Carbon Dioxide 27 mmol/L (21-32) 01/02/19 07:40 Anion Gap 7 MMOL/L (8-16) L 01/02/19 07:40 BUN 24 mg/dL (7-18) H 01/02/19 07:40 Creatinine 1.1 mg/dL (0.55-1.3) 01/02/19 07:40 Creat Clearance w eGFR > 60 (>60) 01/02/19 07:40 Random Glucose 64 mg/dL (74-106) L 01/02/19 07:40 Calcium 8.9 mg/dL (8.5-10.1) 01/02/19 07:40 Total Bilirubin 0.3 mg/dL (0.2-1) 01/02/19 07:40 AST 17 U/L (15-37) 01/02/19 07:40 ALT 20 U/L (13-61) 01/02/19 07:40 Alkaline Phosphatase 72 U/L (45-117) 01/02/19 07:40 Total Protein 8.2 g/dl (6.4-8.2) 01/02/19 07:40 Albumin 3.4 g/dl (3.4-5.0) 01/02/19 07:40 Urine Color Ltyellow 01/03/19 08:00 Urine Appearance Clear 01/03/19 08:00 Urine pH 6.0 (5.0-8.0) 01/03/19 08:00 Ur Specific [place] 1.016 (1.010-1.035) 01/03/19 08:00 Urine Protein Negative (NEGATIVE) 01/03/19 08:00 Urine Glucose (UA) Negative (NEGATIVE) 01/03/19 08:00 Urine Ketones Negative (NEGATIVE) 01/03/19 08:00 Urine Blood Negative (NEGATIVE) 01/03/19 08:00 Urine Nitrite Negative (NEGATIVE) 01/03/19 08:00 Urine Bilirubin Negative (<2.0 mg/dL) 01/03/19 08:00 Urine Urobilinogen Negative mg/dL (0.2-1.0) 01/03/19 08:00 Ur Leukocyte Esterase 2+ (NEGATIVE) H 01/03/19 08:00 Urine WBC (Auto) 26 /hpf (3-5) 01/03/19 08:00 Urine RBC (Auto) 2 /hpf (0-3) 01/03/19 08:00 Urine Bacteria Few /hpf (NONE SEEN) 01/03/19 08:00 RPR Titer Nonreactive (NONREACTIVE) 01/02/19 07:40 01/04/19 15:08 lab noted hyper kalemia repeat K+ Assessment: 01/04/19 15:09 withdrawal sx Plan: continue detox
[2019-01-04] MEDS: THIAMINE HCL 100 MG TABLET (FP) PO SCH (22:23)
[2019-01-05] MEDS: IBUPROFEN 400 MG TABLET (FP) PO PRN (05:46)
[2019-01-05] MEDS: chlordiazePOXIDE HCL 10 MG CAPSULE PO SCH (05:48)
[2019-01-05] MEDS: ACETAMINOPHEN 325 MG TABLET (FP) PO PRN (09:01)
[2019-01-05 09:29] VITALS: BP 111/66; PULSE 66; TEMP 96.8
[2019-01-05] MEDS: PRENATAL VITAMINS W/ FOLIC ACID TABLET (FP) PO SCH (10:04)
[2019-01-05] MEDS: NICOTINE 14 MG/24 HOURS TOPICAL PATCH TD SCH (10:04)
--- NOTE | 2019-01-05 13:23 | DS ---
[facility] Detox Discharge Summary Admission Date: 01/02/19 Discharge Date: 01/05/19 - History Present History: Alcohol Dependence Additional Comments: 61 years old male admitted on 01/02/19 for alcohol withdrawal stabilization completed detox regimen [facility] - Physical Exam Results Vital Signs: Vital Signs Temperature 96.8 F L 01/05/19 09:29 Pulse Rate 66 01/05/19 09:29 Respiratory Rate 18 01/05/19 09:29 Blood Pressure 111/66 01/05/19 09:29 O2 Sat by Pulse Oximetry (%) Pertinent Admission Physical Exam Findings: alcohol withdrawal sx Laboratory Last Values WBC 11.7 K/mm3 (4.0-10.0) H 01/02/19 07:40 RBC 5.06 M/mm3 (4.00-5.60) 01/02/19 07:40 Hgb 12.5 GM/dL (11.7-16.9) 01/02/19 07:40 Hct 36.3 % (35.4-49) 01/02/19 07:40 MCV 71.8 fl (80-96) L 01/02/19 07:40 MCH 24.7 pg (25.7-33.7) L 01/02/19 07:40 MCHC 34.4 g/dl (32.0-35.9) 01/02/19 07:40 RDW 18.3 % (11.9-15.9) H 01/02/19 07:40 Plt Count 353 K/MM3 (134-434) D 01/02/19 07:40 MPV 8.0 fl (7.5-11.1) 01/02/19 07:40 Sodium 137 mmol/L (136-145) 01/02/19 07:40 Potassium 4.5 mmol/L (3.5-5.1) 01/05/19 07:00 Chloride 103 mmol/L (98-107) 01/02/19 07:40 Carbon Dioxide 27 mmol/L (21-32) 01/02/19 07:40 Anion Gap 7 MMOL/L (8-16) L 01/02/19 07:40 BUN 24 mg/dL (7-18) H 01/02/19 07:40 Creatinine 1.1 mg/dL (0.55-1.3) 01/02/19 07:40 Creat Clearance w eGFR > 60 (>60) 01/02/19 07:40 Random Glucose 64 mg/dL (74-106) L 01/02/19 07:40 Calcium 8.9 mg/dL (8.5-10.1) 01/02/19 07:40 Total Bilirubin 0.3 mg/dL (0.2-1) 01/02/19 07:40 AST 17 U/L (15-37) 01/02/19 07:40 ALT 20 U/L (13-61) 01/02/19 07:40 Alkaline Phosphatase 72 U/L (45-117) 01/02/19 07:40 Total Protein 8.2 g/dl (6.4-8.2) 01/02/19 07:40 Albumin 3.4 g/dl (3.4-5.0) 01/02/19 07:40 Urine Color Ltyellow 01/03/19 08:00 Urine Appearance Clear 01/03/19 08:00 Urine pH 6.0 (5.0-8.0) 01/03/19 08:00 Ur Specific [place] 1.016 (1.010-1.035) 01/03/19 08:00 Urine Protein Negative (NEGATIVE) 01/03/19 08:00 Urine Glucose (UA) Negative (NEGATIVE) 01/03/19 08:00 Urine Ketones Negative (NEGATIVE) 01/03/19 08:00 Urine Blood Negative (NEGATIVE) 01/03/19 08:00 Urine Nitrite Negative (NEGATIVE) 01/03/19 08:00 Urine Bilirubin Negative (<2.0 mg/dL) 01/03/19 08:00 Urine Urobilinogen Negative mg/dL (0.2-1.0) 01/03/19 08:00 Ur Leukocyte Esterase 2+ (NEGATIVE) H 01/03/19 08:00 Urine WBC (Auto) 26 /hpf (3-5) 01/03/19 08:00 Urine RBC (Auto) 2 /hpf (0-3) 01/03/19 08:00 Urine Bacteria Few /hpf (NONE SEEN) 01/03/19 08:00 RPR Titer Nonreactive (NONREACTIVE) 01/02/19 07:40 lab noted - Treatment Hospital Course: Detox Protocol Followed, Detoxed Safely, Responded well, Discharged Condition Good, Rehab Referral Accepted Patient has Accepted a Rehab Referral to: [facility] - Medication Discharge Medications: Ambulatory Orders Ferrous Sulfate [Feosol] 325 mg PO DAILY #30 tablet 05/24/17 - Diagnosis (1) Alcohol dependence with uncomplicated withdrawal Status: Acute (2) Essential (primary) hypertension Status: Chronic (3) Nicotine dependence Status: Acute Qualifiers: Nicotine product type: cigarettes Substance use status: in withdrawal Qualified Code(s): F17.213 - Nicotine dependence, cigarettes, with withdrawal - AMA Did Patient Leave Against Medical Advice: No
== END 2019-01-05 12:20 | disposition other institution (70) | DRG 775 ==
LOC: EDBD → YASAS 14:00 → Y3N 01-02 00:24
PROVIDERS: ADMIT Surgery; ATTEND Surgery
PROC: HZ2ZZZZ Detoxification Services for Substance Abuse Treatment (ICD-10-PCS; principal; 2018-12-31)
DX: F10.230 Alcohol dependence with withdrawal, uncomplicated (principal); F17.210 Nicotine dependence, cigarettes, uncomplicated; I10 Essential (primary) hypertension; E87.5 Hyperkalemia; D72.828 Other elevated white blood cell count; Z86.19 Personal history of other infectious and parasitic diseases
CPT/HCPCS: 36415; 80053; 81003; 81015; 84132; 85027; 86593

== ENCOUNTER 2019-01-05 11:49 | Inpatient (IN) | payer OTHER ==
[2019-01-05] MEDS ORDERED: MAG HYDROX/AL HYDROX/SIMETH 30 ML UNIT-DOSE CUP PO PRN (13:24)
[2019-01-05] MEDS ORDERED: MAGNESIUM CITRATE 300 ML BOTTLE PO PRN (13:24)
[2019-01-05] MEDS ORDERED: LOPERAMIDE HCL 2 MG CAPSULE PO PRN (13:24)
[2019-01-05] MEDS ORDERED: MAGNESIUM HYDROX 2400MG/30ML ORAL SUSPENSION 30 ML CUP PO PRN (13:24)
[2019-01-05] MEDS ORDERED: NICOTINE 14 MG/24 HOURS TOPICAL PATCH TD PRN (13:24)
[2019-01-05] MEDS ORDERED: NICOTINE POLACRILEX 2 MG GUM BUC PRN (13:24)
[2019-01-05] MEDS ORDERED: P-EPHED 60MG/TRIPROLIDI 2.5MG TABLET PO PRN (13:24)
--- NOTE | 2019-01-05 13:24 | HP ---
[facility] Rehab Assess/Revision - Admission History Admitted to Rehab from: [facility] Date of Admission to Rehab: 01/05/19 - Vital signs Vital Signs: Vital Signs Period Temp Pulse Resp BP Sys/Ngo Pulse Ox Last 24 Hr 97.9 F 87 18 126/70 - Findings Detox History & Physical reviewed: Yes Concur with findings: Yes Comments/Additional Findings: transferred from detox to rehab admission as per protocol Inpatient Rehab Admission - Rehab Decision to Admit Inpatient rehab admission?: Yes - Initial Determination Are CD services needed?: Yes Free of communicable disease: Yes Not in need of hospitalization: Yes - Rehab Admission Criteria Previous failed treatment: Yes Poor recovery environment: Yes Comorbidities: Yes Lacks judgement: No Patient is meeting Inpatient Rehab admission criteria:: Yes
[2019-01-05 17:28] LABS: URINE APPEARANCE CLEAR; URINE BILIRUBIN NEGATIVE (<2.0 mg/dL); URINE COLOR YELLOW; URINE GLUCOSE (UA) NEGATIVE (NEGATIVE); URINE KETONE NEGATIVE (NEGATIVE); URINE LEUK ESTERASE 2+ (NEGATIVE); URINE NITRITE NEGATIVE (NEGATIVE); URINE PROTEIN NEGATIVE (NEGATIVE); URINE UROBILINOGEN NEGATIVE mg/dL (0.2-1.0)
[2019-01-05] MEDS: THIAMINE HCL 100 MG TABLET (FP) PO SCH (21:45)
[2019-01-05] MEDS ORDERED: THIAMINE HCL 100 MG TABLET (FP) PO SCH (22:00)
[2019-01-06] MEDS: MENTHOL/PHENOL 1 EACH UD MM PRN (06:55)
[2019-01-06] MEDS: guaiFENesin 200 MG/10 ML 10 ML UNIT-DOSE CUPS PO PRN ×2 (06:59→16:28)
[2019-01-06] MEDS: PRENATAL VITAMINS W/ FOLIC ACID TABLET (FP) PO SCH (10:34)
[2019-01-06] MEDS: IBUPROFEN 400 MG TABLET (FP) PO PRN (15:18)
[2019-01-06] MEDS: MELATONIN 5 MG TABLETS PO PRN (21:51)
[2019-01-06] MEDS: THIAMINE HCL 100 MG TABLET (FP) PO SCH (21:51)
[2019-01-07] MEDS: PRENATAL VITAMINS W/ FOLIC ACID TABLET (FP) PO SCH (09:53)
[2019-01-07] MEDS: guaiFENesin 200 MG/10 ML 10 ML UNIT-DOSE CUPS PO PRN (09:54)
[2019-01-07] MEDS: MENTHOL/PHENOL 1 EACH UD MM PRN (09:54)
[2019-01-07] MEDS: THIAMINE HCL 100 MG TABLET (FP) PO SCH (21:02)
[2019-01-07] MEDS: MELATONIN 5 MG TABLETS PO PRN (21:02)
[2019-01-08] MEDS: PRENATAL VITAMINS W/ FOLIC ACID TABLET (FP) PO SCH (10:19)
[2019-01-08] MEDS: MENTHOL/PHENOL 1 EACH UD MM PRN ×2 (14:29→21:20)
[2019-01-08] MEDS: IBUPROFEN 400 MG TABLET (FP) PO PRN (14:31)
[2019-01-08] MEDS: THIAMINE HCL 100 MG TABLET (FP) PO SCH (21:19)
[2019-01-08] MEDS: MELATONIN 5 MG TABLETS PO PRN (21:19)
[2019-01-08] MEDS: guaiFENesin 200 MG/10 ML 10 ML UNIT-DOSE CUPS PO PRN (21:19)
[2019-01-09] MEDS: PRENATAL VITAMINS W/ FOLIC ACID TABLET (FP) PO SCH (09:53)
[2019-01-09] MEDS: guaiFENesin 200 MG/10 ML 10 ML UNIT-DOSE CUPS PO PRN ×2 (15:12→21:59)
[2019-01-09] MEDS: MENTHOL/PHENOL 1 EACH UD MM PRN (15:12)
[2019-01-09] MEDS: THIAMINE HCL 100 MG TABLET (FP) PO SCH (21:53)
[2019-01-09] MEDS: MELATONIN 5 MG TABLETS PO PRN (21:53)
[2019-01-10] MEDS: MENTHOL/PHENOL 1 EACH UD MM PRN (06:37)
[2019-01-10] MEDS: guaiFENesin 200 MG/10 ML 10 ML UNIT-DOSE CUPS PO PRN (06:38)
[2019-01-10] MEDS: PRENATAL VITAMINS W/ FOLIC ACID TABLET (FP) PO SCH (10:19)
[2019-01-10] MEDS: ACETAMINOPHEN 325 MG TABLET (FP) PO PRN ×2 (11:04→17:35)
[2019-01-10] MEDS: THIAMINE HCL 100 MG TABLET (FP) PO SCH (22:48)
[2019-01-11] MEDS: PRENATAL VITAMINS W/ FOLIC ACID TABLET (FP) PO SCH (10:27)
[2019-01-11] MEDS: THIAMINE HCL 100 MG TABLET (FP) PO SCH (21:34)
[2019-01-11] MEDS: MELATONIN 5 MG TABLETS PO PRN (21:34)
[2019-01-12] MEDS: PRENATAL VITAMINS W/ FOLIC ACID TABLET (FP) PO SCH (10:48)
[2019-01-12] MEDS: IBUPROFEN 400 MG TABLET (FP) PO PRN (17:02)
[2019-01-12] MEDS: guaiFENesin 200 MG/10 ML 10 ML UNIT-DOSE CUPS PO PRN (17:03)
[2019-01-12] MEDS: THIAMINE HCL 100 MG TABLET (FP) PO SCH (21:20)
[2019-01-12] MEDS: MELATONIN 5 MG TABLETS PO PRN (21:20)
[2019-01-13] MEDS: PRENATAL VITAMINS W/ FOLIC ACID TABLET (FP) PO SCH (10:16)
[2019-01-13] MEDS: IBUPROFEN 400 MG TABLET (FP) PO PRN (11:34)
[2019-01-13] MEDS: MENTHOL/PHENOL 1 EACH UD MM PRN (11:34)
[2019-01-13] MEDS: guaiFENesin 200 MG/10 ML 10 ML UNIT-DOSE CUPS PO PRN (11:35)
[2019-01-13] MEDS: MELATONIN 5 MG TABLETS PO PRN (21:35)
[2019-01-13] MEDS: THIAMINE HCL 100 MG TABLET (FP) PO SCH (21:35)
[2019-01-14] MEDS: PRENATAL VITAMINS W/ FOLIC ACID TABLET (FP) PO SCH (09:46)
[2019-01-14] MEDS: THIAMINE HCL 100 MG TABLET (FP) PO SCH (21:26)
[2019-01-14] MEDS: MELATONIN 5 MG TABLETS PO PRN (21:26)
[2019-01-15] MEDS: PRENATAL VITAMINS W/ FOLIC ACID TABLET (FP) PO SCH (09:39)
[2019-01-15] MEDS: IBUPROFEN 400 MG TABLET (FP) PO PRN (10:01)
[2019-01-15] MEDS: MELATONIN 5 MG TABLETS PO PRN (21:25)
[2019-01-15] MEDS: THIAMINE HCL 100 MG TABLET (FP) PO SCH (21:25)
[2019-01-16] MEDS: PRENATAL VITAMINS W/ FOLIC ACID TABLET (FP) PO SCH (09:49)
[2019-01-16] MEDS: THIAMINE HCL 100 MG TABLET (FP) PO SCH (21:11)
[2019-01-16] MEDS: MELATONIN 5 MG TABLETS PO PRN (21:11)
[2019-01-16] MEDS: MENTHOL/PHENOL 1 EACH UD MM PRN (21:12)
[2019-01-16] MEDS: guaiFENesin 200 MG/10 ML 10 ML UNIT-DOSE CUPS PO PRN (21:12)
[2019-01-17] MEDS: PRENATAL VITAMINS W/ FOLIC ACID TABLET (FP) PO SCH (09:56)
[2019-01-17] MEDS: THIAMINE HCL 100 MG TABLET (FP) PO SCH (21:03)
[2019-01-17] MEDS: MELATONIN 5 MG TABLETS PO PRN (21:03)
[2019-01-18 07:11] VITALS: BP 145/97; PULSE 72; TEMP 97.8
[2019-01-18] MEDS: PRENATAL VITAMINS W/ FOLIC ACID TABLET (FP) PO SCH (09:13)
--- NOTE | 2019-01-18 09:44 | PN ---
S Progress Note Note: REHAB DISCHARGE NOTE: PATIENT COMPLETED REHAB TODAY AND REPORTS PERSONAL SATISFACTION WITH PROGRAM AND ACCOMPLISHMENT OF ALL REHAB GOALS. PATIENT IS MEDICALLY STABLE AND DENIES SI /HI. AFTERCARE ARRANGED AT [facility] FOR 01/19/19 AT 9AM. PATIENT ENCOURAGED TO CONTINUE WITH AFTERCARE PROGRAM AND GROUP MEETINGS TO PREVENT RELAPSE AND TO FOLLOW UP WITH PCP WITHIN ONE WEEK OF DISCHARGE TO CONTINUE MEDICAL MANAGEMENT. Vital Signs Temperature 97.8 F 01/18/19 07:10 Pulse Rate 72 01/18/19 07:10 Respiratory Rate 18 01/18/19 07:10 Blood Pressure 145/97 01/18/19 07:10 O2 Sat by Pulse Oximetry (%) Ambulatory Orders Ferrous Sulfate [Feosol] 325 mg PO DAILY #30 tablet 05/24/17
== END 2019-01-18 09:25 | disposition home or self-care (01) | DRG 772 ==
LOC: YASAS 11:49 → Y3W 11:51 → EDBD 11:51
PROVIDERS: ADMIT Neuromusculoskeletal Medicine & OMM; ATTEND Neuromusculoskeletal Medicine & OMM
PROC: HZ42ZZZ Group Counseling for Substance Abuse Treatment, Cognitive-Behavioral (ICD-10-PCS; principal; 2019-01-05)
DX: F10.20 Alcohol dependence, uncomplicated (principal); F14.20 Cocaine dependence, uncomplicated
CPT/HCPCS: 81003; 81015